=== PATIENT | female | born 1985 | race Caucasian/White ===

== ENCOUNTER 2017-12-26 07:31 | Day surgery (SDC) | payer OTHER, SELFPAY ==
[2017-12-26 08:01] VITALS: BP 134/95; PULSE 91; RESP 18; TEMP 36.6; O2SAT 100; BMI 38.7
[2017-12-26] MEDS: Cefazolin 2 GM in 0.9% Normal Saline 100 ML IV (10:35)
[2017-12-26] MEDS: Bupiv/Epi 0.5% Mpf 30 ML Vial (10:55)
--- NOTE | 2017-12-26 11:10 | PCM.IMDPSTOP ---
Immediate Post-Op Note Date of Procedure: 12/26/17 Primary Surgeon/Physician: Wesly Abraham bench worker binding: Froylan Ferris Pre-Operative Diagnosis: Right knee internal derangement, possible ACL tear Post-Operative Diagnosis: Right knee medial parapatellar plica and synovitis, no ACL tear Surgery/Procedure Performed:: D & O arthroscopy with subtotal synovectomy and resection of thickened medial plica band Description of Surgical Findings:: see op note Estimated Blood Loss: minimal Specimen's removed: none Type of Anesthesia:: General ASA Class: ASA2 Mod Systematic Disease - Admit VTE Documentation VTE Present on Admission: No VTE Mechan Device Prophylaxis: SCD's, Thigh High LAYTON Hose VTE Pharm Prophylaxis ordered?: Yes
--- NOTE | 2017-12-26 11:13 | OP.PN_ITS ---
Immediate Post-Op Note Date of Procedure: 12/26/17 Primary Surgeon/Physician: Wesly Abraham administrative law judge: Froylan Ferris Pre-Operative Diagnosis: Right knee internal derangement, possible ACL tear Post-Operative Diagnosis: Right knee medial parapatellar plica and synovitis, no ACL tear Surgery/Procedure Performed:: D & O arthroscopy with subtotal synovectomy and resection of thickened medial plica band Description of Surgical Findings:: see op note Estimated Blood Loss: minimal Specimen's removed: none Type of Anesthesia:: General ASA Class: ASA2 Mod Systematic Disease - Admit VTE Documentation VTE Present on Admission: No VTE Mechan Device Prophylaxis: SCD's, Thigh High LAYTON Hose VTE Pharm Prophylaxis ordered?: Yes
[2017-12-26 11:25] VITALS: BP 129/80; BP 134/95; PULSE 115; RESP 18; TEMP 36.4; O2SAT 100
[2017-12-26 11:30] VITALS: BP 133/96; BP 134/95; PULSE 102; RESP 16; O2SAT 100
[2017-12-26 11:45] VITALS: BP 129/94; BP 134/95; PULSE 104; RESP 16; O2SAT 100
[2017-12-26 12:00] VITALS: BP 124/86; BP 134/95; PULSE 100; RESP 16; TEMP 36.3; O2SAT 99
[2017-12-26] MEDS: HYDROcodone Bitartrate/Apap 5/325 Tablet PO (12:12)
[2017-12-26 12:48] VITALS: BP 128/78; BP 134/95; PULSE 70; RESP 18; TEMP 36.6; O2SAT 99
== END 2017-12-26 12:49 | disposition home or self-care (01) ==
LOC: SDC 07:34 → AC 07:35
PROVIDERS: Family Provider Family Medicine; PCP Family Medicine; Referring Provider Orthopaedic Surgery; Visit Provider Orthopaedic Surgery
PROC: (CPT 29888; principal; 2017-12-26 09:00)
DX: M67.51 Plica syndrome, right knee (principal); M65.88 Other synovitis and tenosynovitis, other site; K21.9 Gastro-esophageal reflux disease without esophagitis
CPT/HCPCS: 29876; J7120; J2405